=== PATIENT | male | born 1970 | race Caucasian/White ===

== ENCOUNTER 2023-10-06 18:24 | Inpatient (IN) | payer MEDICAID ==
[~2023-10-06] VITALS: Ht 165.1 cm; Wt 79.4 kg
[2023-10-06 18:38] VITALS: BP_SYST 143; PULSE 67; RESP 24; TEMP 97.7; O2SAT 96
[2023-10-06] MEDS: ONDANSETRON HCL 4 MG/2 ML VIAL IVP ONE (19:05)
[2023-10-06] MEDS: MORPHINE 4 MG INJ. 4 MG/ML VIAL IVP ONE (19:05)
[2023-10-06 19:31] LABS: BASOPHILS % (AUTO) 0.4 % (0.0-2.0); EOSINOPHILS % (AUTO) 0.3 % (0.0-4.0); HEMATOCRIT 42.3 % (36-54); HEMOGLOBIN 14.6 g/dL (14.0-18.0); LYMPHOCYTES % (AUTO) 13.9 % (20.5-51.5); MEAN CORPUSCULAR HEMOGLOBIN 31 pg (27-31); MEAN CORPUSCULAR HGB CONC 35 % (32-36); MEAN CORPUSCULAR VOLUME 91 fL (79.0-98.0); MONOCYTES # (AUTO) 0.5 K/uL (0.0-1.0); MONOCYTES % (AUTO) 7.6 % (1.7-9.3); NEUTROPHILS # (AUTO) 5.4 K/uL (1.8-7.7); NEUTROPHILS % (AUTO) 77.8 % (40.0-70.0); PLATELET COUNT (AUTO) 224 K/uL (130-430); RED BLOOD CELL COUNT(AUTO) 4.65 MIL/uL (4.2-6.2); RED CELL DISTRIBUTION WIDTH 14.7 % (9.0-15.0); WHITE BLOOD COUNT (AUTO) 6.9 K/uL (4.8-10.8)
[2023-10-06 19:49] LABS: ALANINE AMINOTRANSFERASE 23 U/L (12-78); ALBUMIN 3.7 g/dL (3.4-4.8); ANION GAP 10 (5-15); ASPARTATE AMINOTRANSFERASE 30 U/L (10-37); BILIRUBIN,DIRECT 0.1 mg/dL (0.0-0.3); CARBON DIOXIDE 26 mmol/L (23-29); CHLORIDE 103 mmol/L (98-107); CREATININE 1.02 mg/dL (0.55-1.30); GFR AFRICAN AMERICAN 99 mL/min (>90); GLUCOSE 121 mg/dL (74-106); LIPASE 40 U/L (16-77); SODIUM SERUM 139 mmol/L (136-145); TOTAL BILIRUBIN 0.4 mg/dL (0.0-1.0); TOTAL PROTEIN, SERUM 8.3 g/dL (6.4-8.3); UREA NITROGEN, BLOOD 19 mg/dL (8-21)
[2023-10-06 19:59] LABS: GFR NON AFRICAN-AMERICAN 82 mL/min (>90)
[2023-10-06 20:00] LABS: ALCOHOL, BLOOD < 3 mg/dL (<10)
[2023-10-06] MEDS: NACL 0.9% 1,000 ML IV ONE (20:31)
[2023-10-06 20:45] LABS: BILIRUBIN,URINE NEGATIVE (NEGATIVE); BLOOD, URINE NEGATIVE (NEGATIVE); CLARITY/URINE CLEAR (CLEAR); COLOR,URINE YELLOW (YELLOW); GLUCOSE,URINE NEGATIVE (NEGATIVE); KETONES,URINE NEGATIVE (NEGATIVE); LEUKOCYTE ESTERASE ,URINE NEGATIVE (NEGATIVE); NITRITE, URINE NEGATIVE (NEGATIVE); PROTEIN URINE NEGATIVE (NEGATIVE)
[2023-10-06 20:58] LABS: BARBITURATE, URINE NEGATIVE (NEG <=200); METHAMPHETAMINES SCREEN,URINE NEGATIVE (NEG <=500); URINE AMPHETAMINE NEGATIVE (NEG <=500); URINE METHADONE NEGATIVE (NEG <=200)
[2023-10-06 20:59] LABS: BENZODIAZEPINE, URINE NEGATIVE (NEG <=150); CANNABINOID, URINE NEGATIVE (NEG <=50); COCAINE, URINE NEGATIVE (NEG <=150); OPIATE, URINE POSITIVE (NEG <=100); PHENCYCLIDINE SCREEN,URINE NEGATIVE (NEG <=25); UR TRICYCLIC ANTIDEPRESSANTS NEGATIVE (NEG <=300); URINE OXYCODONE SCREEN NEGATIVE (NEG <=100)
[2023-10-07] MEDS ORDERED: MORPHINE 2 MG/ML INJ. SYRINGE IVP PRN (00:15)
[2023-10-07] MEDS ORDERED: ONDANSETRON HCL 4 MG/2 ML VIAL IVP PRN (00:15)
[2023-10-07] MEDS ORDERED: ZOLPIDEM TARTRATE 5 MG TABLET PO PRN (00:15)
[2023-10-07 01:18] VITALS: BP_SYST 136; PULSE 71; RESP 18; TEMP 98.6; O2SAT 97
[2023-10-07] MEDS: MORPHINE 4 MG INJ. 4 MG/ML VIAL IVP PRN (01:48)
[2023-10-07] MEDS ORDERED: ACETAMINOPHEN 325 MG TABLET PO PRN ×2 (07:30→08:15)
[2023-10-07 08:00] VITALS: O2SAT 97
[2023-10-07] MEDS: NACL 0.9% 1,000 ML IV SCH (10:06)
[2023-10-07 10:55] LABS: PROTHROMBIN TIME 10.4 SECS (9.5-12.5)
[2023-10-07 11:10] LABS: ALBUMIN 3.5 g/dL (3.4-4.8); CALCIUM 8.8 mg/dL (8.4-11.0); CREATININE 0.9 mg/dL (0.55-1.30); POTASSIUM 4.2 mmol/L (3.5-5.1); TOTAL PROTEIN, SERUM 8.4 g/dL (6.4-8.3)
[2023-10-07 11:18] LABS: BASOPHILS % (AUTO) 0.2 % (0.0-2.0); EOSINOPHILS % (AUTO) 0.2 % (0.0-4.0); HEMATOCRIT 46.2 % (36-54); HEMOGLOBIN 15.8 g/dL (14.0-18.0); LYMPHOCYTES # (AUTO) 1.1 K/uL (1.0-5.5); LYMPHOCYTES % (AUTO) 12.3 % (20.5-51.5); MEAN CORPUSCULAR HEMOGLOBIN 31 pg (27-31); MEAN CORPUSCULAR HGB CONC 34 % (32-36); MEAN CORPUSCULAR VOLUME 91 fL (79.0-98.0); MONOCYTES # (AUTO) 0.7 K/uL (0.0-1.0); MONOCYTES % (AUTO) 8.4 % (1.7-9.3); NEUTROPHILS % (AUTO) 78.9 % (40.0-70.0); PLATELET COUNT (AUTO) 234 K/uL (130-430); RED BLOOD CELL COUNT(AUTO) 5.08 MIL/uL (4.2-6.2); RED CELL DISTRIBUTION WIDTH 14.5 % (9.0-15.0)
[2023-10-07 11:24] LABS: WHITE BLOOD COUNT (AUTO) 8.8 K/uL (4.8-10.8)
[2023-10-07 12:33] VITALS: BP_SYST 158; PULSE 71; RESP 20; TEMP 99; O2SAT 99
[2023-10-07] MEDS: NIFEdipine 30 MG TAB.ER.24 PO ONE (13:30)
[2023-10-07] MEDS: cefTRIAXone 1 GM in D5W 50 ML IV SCH (15:07)
[2023-10-07 16:16] VITALS: BP_SYST 152; PULSE 73; RESP 19; TEMP 98.4; O2SAT 97
[2023-10-07 19:00] VITALS: O2SAT 96
[2023-10-07] MEDS ORDERED: hydrALAZINE HCL 25 MG TABLET PO PRN (19:30)
[2023-10-07 20:00] VITALS: BP_SYST 134; PULSE 75; RESP 15; TEMP 99.3; O2SAT 96
[2023-10-08] VITALS (7 sets, daily range): BP systolic 125–140; PULSE 74–86; RESP 15–18; TEMP 97.7–99.2; O2SAT 96–99
[2023-10-08 06:20] LABS: BASOPHILS % (AUTO) 0.2 % (0.0-2.0); EOSINOPHILS % (AUTO) 0.5 % (0.0-4.0); HEMOGLOBIN 15.9 g/dL (14.0-18.0); LYMPHOCYTES # (AUTO) 1.2 K/uL (1.0-5.5); LYMPHOCYTES % (AUTO) 11.7 % (20.5-51.5); MEAN CORPUSCULAR HEMOGLOBIN 31 pg (27-31); MEAN CORPUSCULAR HGB CONC 34 % (32-36); MEAN CORPUSCULAR VOLUME 92 fL (79.0-98.0); MONOCYTES # (AUTO) 0.8 K/uL (0.0-1.0); MONOCYTES % (AUTO) 8.2 % (1.7-9.3); NEUTROPHILS # (AUTO) 7.9 K/uL (1.8-7.7); NEUTROPHILS % (AUTO) 79.4 % (40.0-70.0); PLATELET COUNT (AUTO) 232 K/uL (130-430); RED BLOOD CELL COUNT(AUTO) 5.13 MIL/uL (4.2-6.2); RED CELL DISTRIBUTION WIDTH 14.5 % (9.0-15.0)
[2023-10-08 06:29] LABS: ALBUMIN 3.1 g/dL (3.4-4.8); CALCIUM 8.7 mg/dL (8.4-11.0); CREATININE 0.99 mg/dL (0.55-1.30); POTASSIUM 3.9 mmol/L (3.5-5.1); TOTAL PROTEIN, SERUM 7.9 g/dL (6.4-8.3)
[2023-10-08] MEDS: BUPIVACAINE LIPOSOME/PF 266 MG/20 ML VIAL INFIL ONE (07:05)
[2023-10-08] MEDS ORDERED: ONDANSETRON HCL 4 MG/2 ML VIAL ONE (07:25)
[2023-10-08] MEDS ORDERED: NS 1000 ML IV.SOLN IV ONE (07:25)
[2023-10-08] MEDS ORDERED: GLYCOPYRROLATE 0.2 MG/ML VIAL ONE (07:25)
[2023-10-08] MEDS ORDERED: LR 1,000 ML IV.SOLN IV ONE (07:25)
[2023-10-08] MEDS ORDERED: fentaNYL CITRATE/PF 100 MCG/2 ML AMP ONE (07:25)
[2023-10-08] MEDS ORDERED: LIDOCAINE 1% 10 MG/ML, 20 ML MDV ONE (07:25)
[2023-10-08] MEDS ORDERED: METOCLOPRAMIDE HCL 10 MG/2 ML VIAL ONE (07:25)
[2023-10-08] MEDS ORDERED: MIDAZOLAM HCL 2 MG/2 ML VIAL (VERSED) ONE (07:25)
[2023-10-08] MEDS ORDERED: ROCURONIUM BROMIDE 10 MG/ML (ZEMURON) ONE (07:25)
[2023-10-08] MEDS ORDERED: ceFAZolin SODIUM 1 GM VIAL ONE (07:25)
[2023-10-08] MEDS ORDERED: KETOROLAC TROMETHAMINE 30 MG VIAL ONE (07:25)
[2023-10-08] MEDS ORDERED: SEVOFLURANE 15 MIN GAS INH ONE (07:25)
[2023-10-08] MEDS ORDERED: WATER FOR IRRIGATION,STERILE 1,000 ML IRRIG.SOLN IR ONE (07:25)
[2023-10-08] MEDS ORDERED: NS IRRIG SOLN 1000 ML IR ONE (07:25)
[2023-10-08] MEDS ORDERED: NEOSTIGMINE METHYLSULFATE 1 MG/ML, 10 ML VIAL ONE (07:25)
[2023-10-08] MEDS ORDERED: PROPOFOL 200MG/ 20ML VIAL (DIPRIVAN) IV ONE (07:25)
[2023-10-08] MEDS ORDERED: ONDANSETRON HCL 4 MG/2 ML VIAL IVP PRN (08:30)
[2023-10-08] MEDS ORDERED: HYDROmorphone 1 MG/ML INJ. CARTRIDGE IVP PRN (08:30)
[2023-10-08] MEDS ORDERED: HYDROmorphone 2 MG/ML VIAL IVP PRN (08:30)
[2023-10-08] MEDS: LR 1,000 ML IV SCH (08:30)
[2023-10-08] MEDS ORDERED: KETOROLAC TROMETHAMINE 30 MG VIAL IVP PRN (08:30)
[2023-10-08] MEDS: NIFEdipine 30 MG TAB.ER.24 PO SCH (09:00)
[2023-10-08] MEDS ORDERED: NALOXONE HCL 0.4 MG/ML AMP (NARCAN) IVP PRN (11:15)
[2023-10-08] MEDS ORDERED: HYDROcodone/ACETAMIN 10-325 MG TAB PO PRN (11:15)
[2023-10-08] MEDS: LABETALOL HCL 20 MG/4 ML CARTRIDGE IVP ONE ×2 (11:32)
[2023-10-08] MEDS: hydrALAZINE HCL 20 MG/ML VIAL ONE (11:58)
[2023-10-08] MEDS: hydrALAZINE HCL 20 MG/ML VIAL IVP ONE (12:00)
[2023-10-09] VITALS: BP_SYST 128; PULSE 61; RESP 16; TEMP 99.3; O2SAT 98
[2023-10-09 04:00] VITALS: BP_SYST 141; PULSE 76; RESP 20; TEMP 99; O2SAT 98
[2023-10-09 08:07] LABS: BASOPHILS % (AUTO) 0.1 % (0.0-2.0); EOSINOPHILS % (AUTO) 0.2 % (0.0-4.0); HEMATOCRIT 44.4 % (36-54); HEMOGLOBIN 14.7 g/dL (14.0-18.0); LYMPHOCYTES % (AUTO) 8.7 % (20.5-51.5); MEAN CORPUSCULAR HEMOGLOBIN 30 pg (27-31); MEAN CORPUSCULAR HGB CONC 33 % (32-36); MEAN CORPUSCULAR VOLUME 92 fL (79.0-98.0); MONOCYTES # (AUTO) 0.6 K/uL (0.0-1.0); MONOCYTES % (AUTO) 5.3 % (1.7-9.3); NEUTROPHILS # (AUTO) 9.5 K/uL (1.8-7.7); NEUTROPHILS % (AUTO) 85.7 % (40.0-70.0); PLATELET COUNT (AUTO) 219 K/uL (130-430); RED BLOOD CELL COUNT(AUTO) 4.84 MIL/uL (4.2-6.2); WHITE BLOOD COUNT (AUTO) 11.1 K/uL (4.8-10.8)
[2023-10-09 08:15] LABS: ALBUMIN 2.8 g/dL (3.4-4.8); CALCIUM 8.4 mg/dL (8.4-11.0); CREATININE 0.84 mg/dL (0.55-1.30); POTASSIUM 3.9 mmol/L (3.5-5.1); TOTAL PROTEIN, SERUM 7.3 g/dL (6.4-8.3)
[2023-10-09 08:30] VITALS: BP_SYST 128; PULSE 84; RESP 18; TEMP 97.3; O2SAT 97
[2023-10-09] MEDS ORDERED: HYDR-3917 PO (11:25)
[2023-10-09] MEDS ORDERED: DOCU-144 PO (11:25)
[2023-10-09] MEDS ORDERED: AMOX-423 PO (11:25)
[2023-10-09 12:42] VITALS: BP_SYST 128; PULSE 75; RESP 18; TEMP 99.1; O2SAT 98
[2023-10-09 16:22] VITALS: BP_SYST 137; PULSE 79; RESP 18; TEMP 99.1; O2SAT 98
[2023-10-09 20:11] VITALS: BP_SYST 117; PULSE 87; RESP 18; TEMP 98.6; O2SAT 95
[2023-10-10 00:43] VITALS: BP_SYST 114; PULSE 84; RESP 16; TEMP 98.6; O2SAT 94
[2023-10-10 07:46] VITALS: O2SAT 97
[2023-10-10 08:31] VITALS: BP_SYST 113; PULSE 75; RESP 20; TEMP 97.6; O2SAT 97
[2023-10-10 08:36] VITALS: BP_SYST 116; PULSE 80; RESP 18; TEMP 97.9; O2SAT 98
[2023-10-10] MEDS: HYDROcodone/ACETAMIN 7.5-325 MG TAB PO PRN (09:54)
[2023-10-10] MEDS: DOCUSATE SODIUM 100 MG CAPSULE PO SCH (09:55)
[2023-10-10 13:21] VITALS: BP_SYST 116; PULSE 80; RESP 18; TEMP 97.9; O2SAT 98
== END 2023-10-10 13:10 | disposition home or self-care (01) | DRG 263 ==
LOC: SED 18:24 → SMU 10-07 00:15
PROVIDERS: ADMIT Internal Medicine; ATTEND Internal Medicine
PROC: 0DNU4ZZ Release Omentum, Percutaneous Endoscopic Approach (ICD-10-PCS; 2023-10-08)
PROC: 0FT44ZZ Resection of Gallbladder, Percutaneous Endoscopic Approach (ICD-10-PCS; principal; 2023-10-08 07:35)
DX: K80.00 Calculus of gallbladder with acute cholecystitis without obstruction (principal); K82.A1 Gangrene of gallbladder in cholecystitis; K66.0 Peritoneal adhesions (postprocedural) (postinfection); N20.0 Calculus of kidney; Z79.899 Other long term (current) drug therapy
CPT/HCPCS: 36415; 71045; 76705; 80048; 80053; 80076; 80307; 81001; 81003; 83690; 85025; 85610; 87081; 88304; 93005; 94070; 96375; 99285; C1727; C9290; G0482; J0360; J0690; J0696; J1885; J2001; J2270; J2405; J2704; J2710; J2765; J3010; J3465; J3490; J7030; J7060; J7120